=== PATIENT | male | born 1985 | race Caucasian/White ===

== ENCOUNTER → 2021-05-11 | Outpatient (CLI) | payer OTHER ==
--- NOTE | 2021-05-11 09:31 | CT ---
EXAMINATION TYPE: CT pelvis w con DATE OF EXAM: 05/11/2021 COMPARISON: None. HISTORY: Right groin pain CT DLP: 1165 mGycm Automated exposure control for dose reduction was used. CONTRAST: Performed with IV Contrast, patient injected with 100 ml mL of Isovue 300. FINDINGS: No groin hernia or suspicious enlarged adenopathy identified. Muscle bulk is symmetric and within nor mal limits and proximal thighs. Hip joints are symmetric and within normal limits. Satisfactory excretion from both kidneys without hydronephrosis. Urinary bladder appears within john l limits. Prostate gland is normal in size. No suspicious small or large bowel dilatation. Slightly w andering cecum with superior position terminal ileum coronal image 60. Normal-appearing appendix nikkie nal image 67. No pelvic fluid collection or adenopathy. No suspicious enhancing masses. IMPRESSION: Source of right groin pain not identified.
== END ==
LOC: RADCTMAIN 07:56
PROVIDERS: ATTEND Surgery
DX: R10.31 Right lower quadrant pain (principal)
CPT/HCPCS: 72193; Q9967

== ENCOUNTER → 2021-10-16 | Outpatient (CLI) | payer OTHER ==
[2021-10-16 18:42] LABS: Basophils # (A) 0.03 X 10*3/uL (0.00-0.10); Basophils % (A) 0.4 %; Eosinophils # (A) 0.07 X 10*3/uL (0.04-0.35); Eosinophils % (A) 0.9 %; HCT 46.4 % (39.6-50.0); HGB 15.2 g/dL (13.0-17.0); Immature Grans, Automated 0.1 %; Lymphocytes # (A) 2.75 X 10*3/uL (0.90-5.00); Lymphocytes % (A) 34.8 %; MCH 29.5 pg (27.0-32.0); MCHC 32.8 g/dL (32.0-37.0); MCV 89.9 fL (80.0-97.0); Mean Platelet Volume 10.5 fL (9.5-12.2); Monocytes # (A) 0.37 X 10*3/uL (0.20-1.00); Monocytes % (A) 4.7 %; NRBC Per 100 WBC 0 /100 WBCS (0.0-0.0); Neutrophils # (A) 4.67 X 10*3/uL (1.80-7.70); Neutrophils % (A) 59.1 %; Platelet Count 294 X 10*3/uL (140-440); RBC 5.16 X 10*6/uL (4.40-5.60); RDW 11.8 % (11.5-14.5)
== END | disposition home or self-care (01) ==
LOC: LABPAT 12:24
PROVIDERS: ATTEND Surgery
DX: Z01.812 Encounter for preprocedural laboratory examination (principal)
CPT/HCPCS: 36415; 85025

== ENCOUNTER 2021-10-20 06:28 | Day surgery (SDC) | payer OTHER ==
[2021-10-18 12:33] VITALS: BMI 31.3
[~2021-10-20 06:28] MED LIST: ACETAMINOPHEN TAB 500 MG TAB PO PRN; DEXAMETHASONE SOD PHOSPHATE 4 MG/ML 1 ML VIAL IV ONE; HEPARIN SODIUM,PORCINE/PF 5,000 UNIT/0.5 ML SYRINGE SQ PRN; LACTATED RINGERS 1,000 ML IV SCH; MIDAZOLAM 2 MG/2 ML VIAL IV PRN; ONDANSETRON 4 MG/2 ML VIAL IVP ONE; SCOPOLAMINE 1 MG/72 HR PATCH TRANSDERM ONE
[2021-10-20] MEDS ORDERED: HYDROmorphone 0.5 MG/0.5 ML SYRINGE IVP PRN (07:00)
[2021-10-20] MEDS ORDERED: fentaNYL (PF) 50 MCG/ML 2 ML AMP IVP ONE (07:28)
[2021-10-20] MEDS ORDERED: HYDROmorphone (PF) 1 MG/ML ONE (07:49)
[2021-10-20] MEDS ORDERED: GLYCOPYRROLATE 0.2 MG/ML 2 ML VIAL ONE (07:49)
[2021-10-20] MEDS ORDERED: LIDOCAINE 2% INJ 20 MG/ML (2 ML VIAL) ONE (07:49)
[2021-10-20] MEDS ORDERED: SODIUM CHLORIDE 0.9% (PF) 10 ML VIAL ONE (07:49)
[2021-10-20] MEDS ORDERED: fentaNYL (PF) 50 MCG/ML 2 ML AMP ONE (07:49)
[2021-10-20] MEDS ORDERED: NEOSTIGMINE 1 MG/ML 10 ML VIAL ONE (07:49)
[2021-10-20] MEDS ORDERED: PROPOFOL 10 MG/ML 20 ML VIAL IV ONE (07:49)
[2021-10-20] MEDS ORDERED: ROCURONIUM 10 MG/ML (5 ML VIAL) IV ONE (07:49)
[2021-10-20] MEDS ORDERED: ROPIVACAINE 5 MG/ML 30 ML VIAL ONE (07:49)
[2021-10-20] MEDS ORDERED: LIDOCAINE 4% LTA KIT (4 ML) TOPICAL ONE (07:49)
[2021-10-20] MEDS ORDERED: BUPIVACAIN-EPI 0.25%-1:200,000 30 ML VIAL SQ ONE (08:28)
--- NOTE | 2021-10-20 08:45 | P.ANPRN ---
Procedure Note - Anesthesia - Nerve Block Performed Bilateral Transversus Abdominis Single Time Out Performed: Yes ([id number]) Date of Procedure: 10/20/21 Procedure Start Time: : Procedure Stop Time: : Location of Patient: PreOp Indication: Acute Post-Operative Pain, Requested by Surgeon Specifically requested for management of pain by DrConi: Shreyas Claros Sedation Type: Sedate with meaningful contact maintained Preparation: Sterile Prep Position: Supine Catheter: None Needle Types: Pajunk Needle Gauge: 21 Ultrasound used to visualize needle placement: Yes Ultrasound used to observe medication spread: Yes Injectate: 0.5% Ropivacaine (see comment for volume) (15cc + 5cc nacl pf) Blood Aspirated: No Pain Paresthesia on Injection Noted: No Resistance on Injection: Normal Image Stored and Saved: Yes Events: Uneventful and Well Tolerated
[2021-10-20] MEDS ORDERED: LACTATED RINGERS 1,000 ML IV ONE (09:18)
[2021-10-20 09:34] VITALS: TEMP 97
--- NOTE | 2021-10-20 09:45 | P.OP ---
Date of Procedure: 10/20/21 Procedure(s) Performed: PREOPERATIVE DIAGNOSIS: Right inguinal hernia POSTOPERATIVE DIAGNOSIS: Same PROCEDURE: Laparoscopic da Janes assisted repair riding or hernia with mesh, cord lipoma removal SURGEON: Dr. Claros ANESTHESIA: General OPERATIVE PROCEDURE DETAILS: Patient was placed in the operating table in the supine position. The patient was placed under general anesthesia. The abdomen was prepped and draped in usual sterile fashion. A small curvilinear supraumbilical incision was made. The fascia was retracted anteriorly with Joel forceps. The Veress needle was inserted. The saline drop test was normal. Insufflation took place to 15 mmHg. An 8 mm trocar was placed into the peritoneal cavity. 2 additional 8 mm trochars were placed in the right upper quadrant and left upper quadrant under visualization. The robotic arms were then brought in and docked into place. The fenestrated bipolar was used in the left arm and the laparoscopic santiago was utilized in the right arm. A 30 8 mm scope was used in the up position. The peritoneal cavity was inspected. There was no visible peritoneal defect on either side. The right side was only addressed. The peritoneum was incised in a horizontal fashion cephalad to the internal inguinal ring. Following that careful dissection of the preperitoneal space took place. This took place using both electrocautery, sharp dissection but primarily blunt dissection. Visualization of the pubic tubercle and Montez's ligament took place medially. Full dissection took place laterally as well. The patient had a large lipoma of the cord that was removed. This could have been part of what we were feeling on exam. There was also a defect that was relatively superficial in the direct space. This is likely the source of pain and fullness. Once we had adequate space the large Bard 3-D mid mesh was advanced into the preperitoneal space and flattened out appropriately to cover all potential hernia sites. No sutures were used. The peritoneal defect was then closed using a absorbable 2-0 VLok suture. The redundant preperitoneal fat was incorporated into the peritoneal closure to help prevent future recurrence. The pneumoperitoneum was then evacuated. The skin of all 3 sites was closed using a 4-0 Monocryl stitch. Skin glue was then applied. TYPE OF MESH USED: Large Bard 3-D mid LOCATION OF MESH: Preperitoneal FIXATION: None PREOPERATIVE DISCUSSION ON SMOKING CESSASTION: Yes PREOPERATIVE DISCUSSION ON MORBID OBESITY: Yes PREOPERATIVE DISCUSSION ON APPROPRIATE USE OF NARCOTIC USE: Yes PREOPERATIVE EDUCATION: Multi Modal, Smoking Cessation and Weight Loss with BMI over 35. DISPOSITION: Stable to recovery room
[2021-10-20 09:50] VITALS: RESP 16
[2021-10-20 10:49] VITALS: BP 124/83; PULSE 77
[2021-10-20] MEDS ORDERED: ACETAMINOPHEN TAB 325 MG TAB PO SCH (12:00)
[2021-10-20] MEDS ORDERED: IBUPROFEN 600 MG TAB PO SCH (12:45)
== END 2021-10-20 12:49 | disposition home or self-care (01) ==
LOC: OR 06:28
PROVIDERS: ATTEND Surgery
DX: K40.90 Unilateral inguinal hernia, without obstruction or gangrene, not specified as recurrent (principal); D17.6 Benign lipomatous neoplasm of spermatic cord; Z83.49 Family history of other endocrine, nutritional and metabolic diseases; Z88.8 Allergy status to other drugs, medicaments and biological substances
CPT/HCPCS: 49650; S2900; 64488; 86850; 86900; 86901; 88304